=== PATIENT | female | born 1970 | race Caucasian/White ===

== ENCOUNTER 2017-03-09 15:55 | Emergency (ER) | payer BC ==
[2017-03-09 18:45] VITALS: BP 126/72
--- NOTE | 2017-03-09 19:08 | RAD ---
CLINICAL HISTORY: Urinary frequency, bilateral flank pain and lower pelvic pain x1 month. COMPARISON: None TECHNIQUE: Noncontrast CT examination of the abdomen and pelvis from the lung bases through the initial tuberosities. FINDINGS: VISUALIZED LUNG BASES: The visualized lung bases are grossly clear. There is no pleural effusion. ABDOMEN AND PELVIS: Evaluation of the solid organs and vasculature is limited without intravenous contrast. The liver, pancreas and adrenal glands are grossly normal in appearance. The gallbladder is normal. The homogenously attenuating spleen measures 12 cm in greatest dimension. The kidneys are normal in appearance without focal mass, calcification or signs of hydronephrosis. The urinary bladder is mostly decompressed beneath the fundus of the uterus. The small and large bowel are not distended.The patient's normal appendix is identified in the right lower quadrant. There is no gross retroperitoneal or mesenteric lymphadenopathy. Uterus measures 8.1 cm transverse and 10.8 x 5.6 cm in the sagittal plane. The abdominal aorta and iliac arteries are normal in course and diameter. There are no sinister bone lesions. IMPRESSION: 1. There are no renal calculi or signs of hydroureter nephrosis bilaterally. The urinary bladder is mostly decompressed beneath the uterus. 2. The uterus is mildly enlarged measuring 8.3 cm transverse and 10.8 x 5.6 cm in the sagittal plane. The requisition notes a history of uterine ablation which is often done in the setting of uterine fibroids or adenomyosis. If the patient has any clinical gynecologic symptoms superior characterization of the uterus could be made with ultrasound.
--- NOTE | 2017-03-09 19:38 | UC ---
Nette Waters Emily, scribed for Mathieu Montez MD on 03/09/17 at 1702 . Complaint Female HPI - HPI Summary HPI Summary: This patient is a 46 year old F presenting to urgent care with a chief complaint of increased urinary frequency that began 3 weeks ago. The patient rates the pain 4/10 in severity. Symptoms aggravated by nothing. Symptoms alleviated by nothing. Patient reports abd pain, back pain, and dysuria. Pt reports seeing a provider for these symptoms on 03/02/17, and was prescribed antibiotics. Pt reports symptoms lessening 3 days ago, and worsening MAINTENANCE SCHEDULER. - History Of Current Complaint Chief Complaint: UCGU Stated Complaint: UTI COMPLAINT Time Seen by Provider: 03/09/17 16:53 Hx Obtained From: Patient Hx Last Menstrual Period: 02/15/17 Onset/Duration: Sudden Onset, Lasting Weeks, Still Present Timing: Constant Severity Initially: Moderate Severity Currently: Moderate Pain Intensity: 4 Pain Scale Used: 0-10 Numeric Aggravating Factor(s): Nothing Alleviating Factor(s): Nothing Associated Signs And Symptoms: Positive: Back Pain - Allergies/Home Medications Allergies/Adverse Reactions: Allergies Allergy/AdvReac Type Severity Reaction Status Date / Time No Known Allergies Allergy Verified 03/09/17 16:10 PMH/Surg Hx/FS Hx/Imm Hx Previously Healthy: No Endocrine History: Hypothyroidism GI/ History: Other Other GI/ History: Urinary prolapse - Surgical History Surgical History: Yes Surgery Procedure, Year, and Place: - Family History Known Family History: Positive: Unknown - Social History Occupation: Employed Full-time Lives: With Family Alcohol Use: Occasionally Substance Use Type: None Smoking Status (MU): Never Smoked Tobacco - Immunization History Most Recent Tetanus Shot: 10 years ago Review of Systems Gastrointestinal: Abdominal Pain Genitourinary: Dysuria, Frequency Musculoskeletal: Other: - Positive back pain All Other Systems Reviewed And Are Negative: Yes Physical Exam Triage Information Reviewed: Yes Vital Signs: Initial Vital Signs Temp 98.9 F 03/09/17 16:04 Pulse 86 03/09/17 16:04 Resp 18 03/09/17 16:04 BP 149/74 03/09/17 16:04 Pulse Ox 99 03/09/17 16:04 Vital Signs Reviewed: Yes - Additional Comments General: well-appearing, no pain distress Skin: warm, color reflects adequate perfusion, dry Head: normal Eyes: EOMI, SANTHOSH ENT: normal Neck: supple, nontender Respiratory: CTA, breath sounds present Cardiovascular: RRR Abdomen: soft, Mild tenderness to percussion on bilateral flanks. Suprapubic tenderness to palpation. Bowel: present Musculoskeletal: normal, strength/ROM intact Neurological: normal, sensory/motor intact, A&O x3 Psychological: affect/mood appropriate Diagnostics - Radiology CT Abdomen and Pelvis Radiology Interpretation Completed By: Radiologist - CT abdomen and pelvis reveals, per radiologist, 1. There are no renal calculi or signs of hydroureter nephrosis bilaterally. The urinary bladder is mostly decompressed beneath the uterus. 2. The uterus is mildly enlarged measuring 8.3 cm transverse and 10.8 x 5.6 cm in the sagittal plane. The requisition notes a history of uterine ablation which is often done in the setting of uterine fibroids or adenomyosis. If the patient has any clinical gynecologic symptoms superior characterization of the uterus could be made with ultrasound. ED physician has reviewed this radiology report. Complaint Female Dx - Course Course Of Treatment: DISCUSSED RESULTS WITH PATIENT. UTERUS ENLARGED ON CT BUT , NO MECHANICAL OBSTRUCTION SEEN AT THIS TIME. LABS DRAWN PRIMARILY TO EVALUATE SODIUM FOR DIABETES INSIPIDUS AND FOR KIDNEY FUNCTION. DISCUSSED ED EVALUATION NOW; PATIENT PREFERS CT AND LABS THROUGH CLINIC NOW AND F/U WITH PMD OUT PATIENT. SHE WILL GO TO THE ED IF WORSE. - Differential Dx/Diagnosis Provider Diagnoses: ABDOMINAL PAIN, B/L FLANK PAIN, DYSURIA, DILUTE URINE, ENLARGED UTERUS. - Physician Notifications Discussed Patient Care With: Patricia Martines Time Discussed With Above Provider: 17:30 Instructed by Provider To: Other - Consult with Dr. Martines (hospitalist) at 1730. She recommends further workup. Discharge - Discharge Plan Condition: Stable Disposition: HOME Patient Education Materials: Dysuria (ED), Abdominal Pain (ED), Flank Pain (ED) Referrals: Ramila Kelly MD [Primary Care Provider] - Additional Instructions: FOLLOW UP WITH YOUR DOCTOR. GO TO THE EMERGENCY DEPARTMENT FOR ANY WORSENING OF YOUR CONDITION; PAIN, FEVER , YOU FEEL ILL OR QUESTIONS OR CONCERNS. The documentation as recorded by the Nette soto Emily accurately reflects the service I personally performed and the decisions made by me, Mathieu Montez MD.
[2017-03-10 11:07] LABS: ABS Basophils 0 10^3/ul (0-0.2); ABS Eosinophils 0.1 10^3/ul (0-0.6); ABS Lymphocytes 1.3 10^3/ul (1.0-4.8); ABS Monocytes 0.5 10^3/ul (0-0.8); ABS Neutrophils 5.4 10^3/ul (1.5-7.7); ABS Nucleated RBC 0 10^3/ul; Eosinophil % 1.7 % (0-6); Hematocrit 37 % (35-47); Hemoglobin 12.4 g/dl (12.0-16.0); Lymphocyte % 18.1 % (25-47); Mean Corpuscular HGB Conc 34 g/dl (31-36); Mean Corpuscular Hemoglobin 28 pg (27-31); Mean Corpuscular Volume 83 fL (80-97); Mean Platelet Volume 11 um3 (7.4-10.4); Nucleated Red Blood Cells % 0.3; Platelet Count 216 10^3/ul (150-450); Red Blood Count 4.49 10^6/ul (4.0-5.4); Red Cell Distribution Width 14 % (10.5-15); White Blood Count 7.4 10^3/ul (3.5-10.8)
[2017-03-10 11:41] LABS: EGFR Non-African American 79.5 (>60)
--- NOTE | 2017-03-10 22:15 | ED ---
Progress - Progress Note Progress Note: CBC, chemistry reviewed no change to managment Dileepwillian 03/10/2017 Course/Dx - Course Course Of Treatment: DISCUSSED RESULTS WITH PATIENT. UTERUS ENLARGED ON CT BUT , NO MECHANICAL OBSTRUCTION SEEN AT THIS TIME. LABS DRAWN PRIMARILY TO EVALUATE SODIUM FOR DIABETES INSIPIDUS AND FOR KIDNEY FUNCTION. DISCUSSED ED EVALUATION NOW; PATIENT PREFERS CT AND LABS THROUGH CLINIC NOW AND F/U WITH PMD OUT PATIENT. SHE WILL GO TO THE ED IF WORSE. - Provider Notifications Time Discussed With Above Provider: 17:30 Instructed by Provider To: Other - Consult with Dr. Martines (hospitalist) at 1730. She recommends further workup.
== END 2017-03-09 19:36 | disposition home or self-care (01) ==
LOC: UCEAST 15:55
DX: R10.30 Lower abdominal pain, unspecified (principal); M54.9 Dorsalgia, unspecified; R30.0 Dysuria; N85.2 Hypertrophy of uterus; E03.9 Hypothyroidism, unspecified
CPT/HCPCS: 36415; 74176; 80053; 81003; 81025; 84443; 85025; 86140; 87086; 99211; G0463

== ENCOUNTER 2017-11-29 12:42 | Emergency (ER) | payer BC ==
[2017-11-29 12:57] VITALS: BP 109/71
[2017-11-29] MEDS ORDERED: Eye Irrigation Solution 30 ML BOTTLE LEFT EYE ONE (13:15)
[2017-11-29] MEDS ORDERED: Fluorescein Sodium TOPICAL* 1 MG TEST STRIP OPHTHALMIC ONE (13:15)
[2017-11-29] MEDS ORDERED: Tetracaine 0.5% OPTH.SOL 15ML* BTL RIGHT EYE ONE (13:15)
--- NOTE | 2017-11-29 13:15 | UC ---
Eye Complaint HPI - HPI Summary HPI Summary: 47 y/o female presents to the urgent care c/o FB in her RT eye since yesterday. Pt irrigated her eye w/o any relief. Pt reports she was hiking and wind was blowing a lot , then she felt something got into her eye. She has been rubbing her eye a lot. Pain is mild specially in the lateral side of the Rt eye. Pt woke up w/ a lot of irritation. Mild pain 1/10. Pt denies fever, visual disturbance, photophobia, VERDUZCO, SOB, chest pain, abdominal pain, dizziness. Pt is UTD w/ Tetanus vaccine. - History of Current Complaint Chief Complaint: UCEye Stated Complaint: EYE COMPLAINT Time Seen by Provider: 11/29/17 13:14 Hx Obtained From: Patient Hx Last Menstrual Period: 02/15/17 Onset/Duration: Sudden Onset, Lasting Days - 1 day, Still Present, Worse Since - today Timing: Constant Severity Initially: Mild Severity Currently: Mild Pain Intensity: 1 Pain Scale Used: 0-10 Numeric Location of Injury: Conjunctiva Character: Foreign Body Sensation Aggravating Factor(s): Blinking Alleviating Factor(s): Other - eye irrigation Associated Signs And Symptoms: Positive: Drainage (Clear). Negative: Photophobia, Drainage (Purulent), Vision Impairment Bilateral, Fever, Swelling - Risk Factors Penetrating Injury Risk Factor: Negative Globe Rupture Risk Factors: Negative Acute Glaucoma Risk Factors: Negative Optic Artery Occlusion Risk Factors: Negative - Allergies/Home Medications Allergies/Adverse Reactions: Allergies Allergy/AdvReac Type Severity Reaction Status Date / Time No Known Allergies Allergy Verified 11/29/17 12:57 Home Medications: Home Medications Cholecalciferol (Vitamin D3) [Vitamin D3] 1,000 unit PO 11/29/17 [History] PMH/Surg Hx/FS Hx/Imm Hx Previously Healthy: Yes Endocrine History: Hypothyroidism Other Endocrine History: Vitaming D defficiency - Surgical History Surgical History: Yes Surgery Procedure, Year, and Place: - Family History Known Family History: Positive: Unknown - Social History Alcohol Use: Occasionally Substance Use Type: None Smoking Status (MU): Never Smoked Tobacco - Immunization History Most Recent Tetanus Shot: 10 years ago Review of Systems Constitutional: Negative Skin: Negative Eyes: Drainage - clear, Eye Redness - RT eye ENT: Negative Respiratory: Negative Cardiovascular: Negative Gastrointestinal: Negative Genitourinary: Negative Motor: Negative Neurovascular: Negative Musculoskeletal: Negative Neurological: Negative Psychological: Negative Is Patient Immunocompromised?: No All Other Systems Reviewed And Are Negative: Yes Physical Exam - Summary Physical Exam Summary: Vital Signs Reviewed: Yes General: Well appearing, well nourished female in no apparent pain distress Eyes: Positive: Conjunctiva Inflamed - Visual acuity: WNL,Visual gill: full to confrontation.RT eye with lateral side of conjunctiva w/ erythema and clear eye discahrge. No foreign body under eyelids observed with naked eye. mild tenderness to palpation of lateral aspect of RT eye. PERRLA, EOMI intact w/out limitation or complaint of pain. eyelashes clear. mild tearing w/ clear drainage observed. No ciliary flush. No chemosis, No photophobia. Normal fundoscopic exam; no proptosis, exophthalmos, nystagmus. ENT: Positive: Normal ENT inspection, Hearing grossly normal, Pharynx normal, Nasal congestion, Nasal drainage - clear, TMs normal - B/L external ear canal clear , TM's WNL. Negative: Tonsillar swelling, Tonsillar exudate Neck: Positive: Supple, Nontender, No Lymphadenopathy Respiratory: Positive: Chest nontender, Lungs clear, Normal breath sounds, No respiratory distress Cardiovascular: Positive: RRR, No Murmur, Pulses Normal, Brisk Capillary Refill Abdomen Description: Positive: Nontender, No Organomegaly, Soft. Negative: CVA Tenderness (R), CVA Tenderness (L) Bowel Sounds: Positive: Present Musculoskeletal: Positive: Strength Intact, ROM Intact, No Edema Neurological Exam: Normal Psychological Exam: Normal Skin Exam: Normal Triage Information Reviewed: Yes Vital Signs: Initial Vital Signs Temp 98.2 F 11/29/17 12:53 Pulse 77 11/29/17 12:53 Resp 18 11/29/17 12:53 BP 109/71 11/29/17 12:53 Pulse Ox 98 11/29/17 12:53 Eye Complaint Course/Dx - Course Course Of Treatment: 47 y/o female presents to the urgent care c/o FB in her RT eye since yesterday. Pt irrigated her eye w/o any relief. Pt reports she was hiking and wind was blowing a lot , then she felt something got into her eye. She has been rubbing her eye a lot. Pain is mild specially in the lateral side of the Rt eye. Pt woke up w/ a lot of irritation. Mild pain 1/10. Pt denies fever, visual disturbance, photophobia, VERDUZCO, SOB, chest pain, abdominal pain, dizziness. Pt is UTD w/ Tetanus vaccine. Hx obtained. Pt's. RT eye with lateral side of conjunctiva w/ erythema and clear eye discahrge. No foreign body under eyelids observed with naked eye. 2 drops of Tetracaine optha drops placed on Pts RT eye, then irrigated with saline drops to flush any foreign particles, then fluorescein instillation and examination with a UV lamp. Discrete corneal abrasion observed at 9 oclock. No foreign body identified. After procedure Pt felt better. Pt Rx Erythromycin ophthalmic ointment and advised to f/u at [facility] ophthal[facility] [place]. Pt understood and agreed. - Differential Dx/Diagnosis Differential Diagnosis/HQI/PQRI: Conjunctivitis, Corneal Abrasion, Foreign Body , Keratitis, Periorbital Cellulitis Provider Diagnoses: 1 Corneal abrasion of RT eye s/p foreing body Discharge - Sign-Out/Discharge Documenting (check all that apply): Patient Departure - D/C home All imaging exams completed and their final reports reviewed: No Studies - Discharge Plan Condition: Stable Disposition: HOME Prescriptions: Erythromycin OPTH OINT* [Erythromycin 0.5% OPTH OINT*] 1 applic RIGHT EYE TID # 1 ophth.oint Patient Education Materials: Corneal Abrasion (ED), Eye Foreign Body (ED) Referrals: Last Ordoñez MD [Medical Doctor] - 2 Days Ramila Kelly MD [Primary Care Provider] - If Needed Additional Instructions: 1-Please apply ophthalmic ointment as instructed to prevent infection 2-If you do not improve or if symptoms worsen please f/u with sas programmer analyst DR Ordoñez in 2 days for further evaluation and treatment - Billing Disposition and Condition Condition: STABLE Disposition: Home
[2017-11-29] MEDS ORDERED: Tetracaine 0.5% OPTH.SOL 4 ML* 1 DROP BTL ONE (13:28)
[2017-11-29] MEDS ORDERED: Tetracaine 0.5% OPTH.SOL 4 ML* 1 DROP BTL RIGHT EYE ONE (13:29)
== END 2017-11-29 14:15 | disposition home or self-care (01) ==
LOC: UCEAST 12:42
DX: T15.01XA Foreign body in cornea, right eye, initial encounter (principal); E55.9 Vitamin D deficiency, unspecified; X58.XXXA Exposure to other specified factors, initial encounter; Y93.01 Activity, walking, marching and hiking; Y92.9 Unspecified place or not applicable
CPT/HCPCS: 99212; A9270-GY; G0463

== ENCOUNTER 2018-03-18 17:51 | Emergency (ER) | payer BC ==
[2018-03-18 18:15] VITALS: BP 136/89
--- NOTE | 2018-03-18 18:46 | UC ---
Neck Pain HPI - HPI Summary HPI Summary: 47-year-old woman comes in with chief complaint of left jaw and neck pain. One week ago patient noticed some pain and swelling at the angle of the left jaw. Pain gradually spread towards the ear and into the teeth on that side. The pain then crossed the midline to the right side of the jaw. Pain was worse about 2 days ago it's improved slightly since that time. 2 days ago she did feel a chest heaviness but she does not have any of that pain now. She's able to palpate a swelling that she reports is this origin of the pain near the left parotid gland. No fevers or chills she's been able to swallow. Pain is going to the ear. The ear does not hurt and itself. Also some pain in the TMJs. Pain is worse with palpation and movement. She has not tried any ibuprofen. Denies any dental infection. - History of Current Complaint Chief Complaint: UCGeneralIllness Stated Complaint: JAW PAIN Time Seen by Provider: 03/18/18 18:25 Hx Last Menstrual Period: ONSET LAST NIGHT Pain Intensity: 6 - Allergies/Home Medications Allergies/Adverse Reactions: Allergies Allergy/AdvReac Type Severity Reaction Status Date / Time No Known Allergies Allergy Verified 03/18/18 18:16 Home Medications: Home Medications Magnesium 1 tab PO DAILY 03/18/18 [History Confirmed 03/18/18] PMH/Surg Hx/FS Hx/Imm Hx Previously Healthy: Yes - CHRONIC ELEVATED PTH Endocrine History: Hypothyroidism - Surgical History Surgical History: Yes Surgery Procedure, Year, and Place: - Family History Known Family History: Positive: Unknown - Social History Alcohol Use: Occasionally Substance Use Type: None Smoking Status (MU): Never Smoked Tobacco - Immunization History Most Recent Tetanus Shot: 10 years ago Review Of Systems Constitutional: Positive: Negative Skin: Positive: Negative Eyes: Positive: Negative ENT: Positive: Other - SEE HPI Respiratory: Positive: Shortness Of Breath - SEE HPI Cardiovascular: Positive: Negative Gastrointestinal: Positive: Negative Musculoskeletal: Positive: Negative Neurological: Positive: Negative Psychological: Positive: Negative All Other Systems Reviewed And Are Negative: No Physical Exam Appearance: Well-Appearing, No Pain Distress, Well-Nourished Vital Signs: Initial Vital Signs Temp 98.2 F 03/18/18 18:10 Pulse 69 03/18/18 18:10 Resp 16 03/18/18 18:10 BP 136/89 03/18/18 18:10 Pulse Ox 99 03/18/18 18:10 Vital Signs Reviewed: Yes Eye Exam: Normal Eyes: Positive: Conjunctiva Clear ENT: Positive: Pharynx normal, TMs normal, Other - TENDER SWELLING LOWER LEFT PAROTID AREA. Negative: Pharyngeal erythema, Nasal congestion, Nasal drainage, Tonsillar swelling, Tonsillar exudate, Trismus, Muffled voice Dental Exam: Normal Neck: Positive: Supple Respiratory: Positive: Lungs clear, Normal breath sounds, No respiratory distress Cardiovascular: Positive: RRR Musculoskeletal Exam: Normal Musculoskeletal: Positive: Strength Intact, ROM Intact Neurological Exam: Normal Neurological: Positive: Alert, Muscle Tone Normal Psychological Exam: Normal Psychological: Positive: Normal Response To Family, Age Appropriate Behavior Skin Exam: Normal Neck Pain Course/Dx - Course Course Of Treatment: Order Information: CT SOFT TISSUE NECK W/O. Accession Number: [id number]. CPT: 76691. EXAM: CT Neck Without Contrast. EXAM DATE/ TIME: 03/18/2018 6:55 PM. CLINICAL HISTORY: 47 years old, female; Signs and symptoms; Enlarged lymph nodes and mass, lump,. or swelling in neck; Generalized; Additional info: Left jaw/neck pain/swelling. x 1 week, swelling on both sides of neck, pain radiating to mandible. TECHNIQUE: Axial computed tomography images of the neck without contrast. All CT scans at this facility use at least one of these dose optimization. techniques: automated exposure control; mA and/or kV adjustment per patient. size (includes targeted exams where dose is matched to clinical indication); or. iterative reconstruction. Coronal and sagittal reformatted images were created and reviewed. COMPARISON: No relevant prior studies available. FINDINGS: Oropharynx: Normal. No significant tonsillar enlargement. Larynx: Normal. Normal epiglottis. Submandibular/Parotid glands: Normal. Glands are normal in size. Thyroid: Normal. No enlarged or calcified nodules. Lymph nodes: Normal. No lymphadenopathy. Lungs: Normal as visualized. Vasculature: No acute findings. Bones/joints: Mild multilevel cervical spondylopathy. Soft tissues: Normal. No significant soft tissue swelling. IMPRESSION: No CT findings to correlate with patient's symptomatology. Specifically no left. neck masses. To contact [facility] with a general question: Operations Center - [phone]. For direct physician to physician contact: Physician Hotline - [phone]. [facility] [place] (ad Facility ID #[id number]). . <Electronically signed by Tessa Romero MD in OV> 03/18/181930. I discussed the CT results with the patient and her . At this time the plan is to treat with ibuprofen and follow-up with primary care doctor if not completely improved. We discussed the possibility of infection of the parotid gland or teeth. That is not apparent at this time however did write a prescription for amoxicillin to be used if not improving. ALSO discussed warm compresses and sour candies. - Differential Dx/Diagnosis Provider Diagnosis: Jaw pain Discharge - Sign-Out/Discharge Documenting (check all that apply): Patient Departure All imaging exams completed and their final reports reviewed: Yes - Discharge Plan Condition: Stable Disposition: HOME Prescriptions: Amoxicillin PO (*) [Amoxicillin 875 MG (*)] 875 mg PO BID #20 tab Patient Education Materials: Atypical Facial Pain (ED) Referrals: Ramila Kelly MD [Primary Care Provider] - Additional Instructions: FOLLOW UP WITH YOUR DOCTOR IF NOT COMPLETELY IMPROVED. GET RECHECKED FOR ANY WORSENING OF YOUR CONDITION OR QUESTIONS OR CONCERNS. - Billing Disposition and Condition Condition: STABLE Disposition: Home
== END 2018-03-18 19:55 | disposition home or self-care (01) ==
LOC: UCEAST 17:51
DX: R68.84 Jaw pain (principal); M54.2 Cervicalgia
CPT/HCPCS: 70490; 99212; G0463

== ENCOUNTER 2019-06-11 16:06 | Observation (INO) | payer BC, MEDICAID ==
--- NOTE | 2019-06-11 16:21 | ED ---
HPI Chest Pain - HPI Summary HPI Summary: 48 y/o F p/w SOB and CP. On 05/17 patient had negative COVID test. Patient reports 4 weeks of SOB, CP and fatigue. Reports a low grade fever initially, Tmax 38 C. Patient reports persistent CP. No fevers. Patient reports chest pain , dull, consistent, worse at evening. Radiates to upper abdomen. Sometimes has burning pain. Has been measuring home O2 around 88-90 at night. Reports waking up at night gasping for air. No hx DVT/PE. Has been trying mucinex which has helped. Additionally reports productive cough. - History of Current Complaint Time Seen by Provider: 06/11/19 16:14 Hx Obtained From: Patient Hx Last Menstrual Period: 09/29/18 Chest Pain Radiates: Yes Chest Pain Radiates To:: Epigastric Character: Burning, Cough, Productive Aggravating Factor(s): Nothing Alleviating Factor(s): Medication - Mucinex Associated Signs and Symptoms: Positive: Chest Pain, Shortness of Breath, Fever , Cough, Productive Cough, Other: - fatigue - Allergy/Home Medications Allergies/Adverse Reactions: Allergies Allergy/AdvReac Type Severity Reaction Status Date / Time No Known Allergies Allergy Verified 03/18/18 18:16 Home Medications: Home Medications Synthorid 112 MCG TAB* 1 tab PO DAILY 06/30/14 [History Confirmed 03/18/18] Multivitamin [Multivitamins] 1 cap PO DAILY 08/21/15 [History Confirmed 03/18/18 ] Cholecalciferol (Vitamin D3) [Vitamin D3] 1,000 unit PO DAILY 11/29/17 [History Confirmed 03/18/18] Amoxicillin PO (*) [Amoxicillin 875 MG (*)] 875 mg PO BID #20 tab 03/18/18 [Rx] Magnesium 1 tab PO DAILY 03/18/18 [History Confirmed 03/18/18] PMH/Surg Hx/FS Hx/Imm Hx Endocrine/Hematology History: Reports: Hx Thyroid Disease - 112mcg Denies: Hx Diabetes Cardiovascular History: Denies: Hx Hypertension Respiratory History: Denies: Hx Asthma, Hx Chronic Obstructive Pulmonary Disease (COPD) GI History: Denies: Hx Ulcer - Surgical History Surgery Procedure, Year, and Place: Infectious Disease History: Denies: Hx Clostridium Difficile, Hx Hepatitis, Hx Human Immunodeficiency Virus (HIV), Hx of Known/Suspected MRSA, Hx Shingles, Hx Tuberculosis, Hx Known/ Suspected VRE, Hx Known/Suspected VRSA - Family History Known Family History: Positive: Hypertension, Other - CAD, CVA, thrombocytosis - Social History Alcohol Use: Occasionally Substance Use Type: Reports: None Smoking Status (MU): Never Smoked Tobacco Review of Systems Positive: Fever, Fatigue Positive: Chest Pain Positive: Shortness Of Breath, Cough All Other Systems Reviewed And Are Negative: Yes Physical Exam - Summary Physical Exam Summary: Constitutional: Well-developed, Well-nourished, Alert. (-) Distressed Skin: Warm, Dry HENT: Normocephalic; Atraumatic Eyes: Conjunctiva normal Neck: Musculoskeletal ROM normal neck. (-) JVD, (-) Stridor, (-) Nuchal rigidity Cardio: Rhythm regular, rate normal, Heart sounds normal; Intact distal pulses; Radial pulses are 2+ and symmetric. (-) Murmur Pulmonary/Chest wall: Effort normal. (-) Respiratory distress, (-) Wheezes, (-) Rales Abd: Soft, (-) tenderness, (-) Distension, (-) Guarding, (-) Rebound Musculoskeletal: (-) Edema Lymph: (-) Cervical adenopathy Neuro: Alert, Oriented x3 Psych: Mood and affect Normal Triage Information Reviewed: Yes Vital Signs Reviewed: Yes Procedures - Sedation Patient Received Moderate/Deep Sedation with Procedure: No Diagnostics - Laboratory Result Diagrams: 06/11/19 16:50 06/11/19 16:50 Lab Statement: Any lab studies that have been ordered have been reviewed, and results considered in the medical decision making process. - Radiology CXR Radiology Interpretation Completed By: ED Physician Summary of Radiographic Findings: No acute abnormality. This x-ray was reviewed and interpreted by the ED physician pending official read. - EKG 1646 Cardiac Rate: NL EKG Rhythm: Sinus Rhythm Summary of EKG Findings: An EKG at 1646 reveals normal sinus rhythm at 70bpm, nml axis, nml intervals. Mild ST dep II,III, No STEMI. Overall low voltage. No prior. The ED physician has reviewed and interpreted this EKG. Chest Pain Course/Dx - Course Course Of Treatment: 48 y/o F w hx hypthyroidism p/w SOB and CP. - well appearing, SpO2 96%. Lungs CTAB. - EKG low voltage, mild ST dep II,III no prior. Trop 0.09. Given aspirin 324 mg. Concen for ACS vs myocarditis given recent viral like syndrome. D dimer normal, lower suspicion DVT/PE. CXR w/o PNA , PTX or mediastinal widening. - D/w Dr. Restrepo who accepts for admission. BNP ordered. - Patient kept on COVID precautions in ED - Diagnoses Provider Diagnoses: Chest pain - Provider Notifications Discussed Care Of Patient With: Noris Restrepo Time Discussed With Above Provider: 17:38 Instructed by Provider To: Other - At 1738 pt case was discussed with Dr. Restrepo , who agrees to admit the pt. - Critical Care Time Critical Care Statement: Critical care time is provided exclusive of any time spent performing procedures. Discharge ED - Sign-Out/Discharge Documenting (check all that apply): Patient Departure - admit - Discharge Plan Condition: Stable Disposition: ADMITTED TO [facility] Referrals: Ramila Kelly MD [Primary Care Provider] - - Billing Disposition and Condition Condition: STABLE Disposition: Admitted to [facility] - Attestation Statements Document Initiated by Scribe: Yes Documenting Scribe: Bean Epps Provider For Whom Scribe is Documenting (Include Credential): Dave Lewis MD Scribe Attestation: Bean Waters, scribed for Dave Lewis MD on 06/11/19 at 1821. Scribe Documentation Reviewed: Yes Provider Attestation: The documentation as recorded by the Bean soto accurately reflects the service I personally performed and the decisions made by Dave figueroa MD Status of Scribe Document: Viewed
[2019-06-11 17:11] LABS: ABS Basophils 0.1 10^3/ul (0-0.2); ABS Eosinophils 0.1 10^3/ul (0-0.6); ABS Lymphocytes 1.3 10^3/ul (1.0-4.8); ABS Monocytes 0.3 10^3/ul (0-0.8); ABS Neutrophils 4.3 10^3/ul (1.5-7.7); Eosinophil % 1.4 %; Hematocrit 41 % (35-47); Hemoglobin 14.2 g/dL (12.0-16.0); Lymphocyte % 21.8 %; Mean Corpuscular HGB Conc 35 g/dL (31-36); Mean Corpuscular Hemoglobin 30 pg (27-31); Mean Corpuscular Volume 87 fL (80-97); Mean Platelet Volume 8.9 fL (7.4-10.4); Nucleated Red Blood Cells % 0.1; Platelet Count 221 10^3/uL (150-450); Red Blood Count 4.68 10^6 /uL (3.70-4.87); Red Cell Distribution Width 14 % (10-15); White Blood Count 6.1 10^3/uL (3.5-10.8)
[2019-06-11 17:29] LABS: ALT 12 U/L (7-52); Albumin/Globulin Ratio 1.4 (1-3); Alkaline Phosphatase 68 U/L (34-104); BUN/Creatinine Ratio 12.7 (8-20); Blood Urea Nitrogen 10 mg/dL (6-24); CO2 Carbon Dioxide 29 mmol/L (22-32); Calcium 8.8 mg/dL (8.6-10.3); Chloride 104 mmol/L (101-111); EGFR Non-African American 77.7 (>60); Globulin 2.8 g/dL (2-4); Glucose 93 mg/dL (70-100); Sodium 136 mmol/L (135-145); Total Protein 6.8 g/dL (6.4-8.9)
[2019-06-11 17:35] LABS: Troponin I 0.09 ng/mL (<0.03)
[2019-06-11] MEDS ORDERED: Aspirin 81 mg CHEW TAB* 81 MG TAB.CHEW PO ONE (17:41)
[2019-06-11 17:47] LABS: AST 15 U/L (13-39); Anion Gap 3 mmol/L (2-11)
[2019-06-11] MEDS ORDERED: Acetaminophen TAB* 325 MG PO PRN (18:47)
[2019-06-11] MEDS ORDERED: Al Hydrox/Mg Hydrox/Simet LIQ* 30 ML UDC PO PRN (18:47)
--- NOTE | 2019-06-11 20:34 | HP ---
Amended report to enter cosigning physician. CC: Dr. Kelly* HISTORY AND PHYSICAL: DATE OF ADMISSION: 06/11/19 PROVIDER: Mirella Singleton NP PRIMARY CARE PROVIDER: Dr. Kelly. ATTENDING PHYSICIAN WHILE IN THE HOSPITAL: Dr. Brown* (dictated by Mirella Singleton NP). CHIEF COMPLAINT: 1. Chest pain. 2. Shortness of breath. HISTORY OF PRESENT ILLNESS: Ms. Gates is a 48-year-old female with a past medical history significant for hypothyroidism, who presented to the emergency room with complaints of chest pain. The patient reports that she initially started with cough and congestion approximately 4 weeks ago, at which time she was tested for COVID and was negative for COVID. The patient does report that she has self isolated since her COVID testing and has not been out in public or in the contact with public. The patient reports that over the past 4 weeks, she has had progressively worsening shortness of breath associated with chest pain. She notices that this chest pain and shortness of breath is intermittent. She reports that the chest pain and shortness of breath she experiences is after exertion. 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 She describes this as a burning feeling in the center of her chest and with association of unable to catch her breath. 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 The patient denies any fever, chills. She denies any hemoptysis. She does report occasional moist, minimally productive cough. She denies any abdominal pain, nausea, vomiting, or diarrhea. She denies any difficulty with urination, urinary frequency, urgency or pain with urination. She denies any gross hematuria. She denies any focal weakness, sensory loss, visual complaints, dysphagia, or arthralgias. Denies myalgias with rashes, lesions, open sores, psychosis, anxiety. Due to the patient's complaint of exertional chest pain and shortness of breath , Hospital Medicine was asked to see and evaluate her for admission. PAST MEDICAL HISTORY: Significant for hypothyroidism. PAST SURGICAL HISTORY: 1. Tonsillectomy. 2. section x1. HOME MEDICATIONS: Include levothyroxine 125 mcg p.o. daily. ALLERGIES: No known drug allergies. FAMILY HISTORY: Grandfather with an MA in his 50s. Father had a pacemaker placement. No reported history of diabetes or cancer. SOCIAL HISTORY: The patient reports that she was a social smoker approximately 25 years ago. She does not currently smoke at this time. She does report occasional alcohol use. No illicit drug use. She currently lives by herself. Surrogate decision-maker in the event she is unable to make her own decisions is her daughter, Keily. She is a full code. REVIEW OF SYSTEMS: A 14-point review of systems was completed. All pertinent positives as mentioned in the HPI. PHYSICAL EXAMINATION GENERAL: Ms. Gates is a 48-year-old female. She is alert and oriented, resting on the stretcher in the emergency room. She is well-developed, well- nourished middle aged female. VITAL SIGNS: Blood pressure 146/99, heart rate 74, respirations 15, O2 saturation is 96%, temperature was 98.5. HEENT: Head is atraumatic, normocephalic. Eyes: EOMs are intact. Sclerae anicteric and not pale. Oral mucosa is moist. NECK: Supple. LUNGS: Clear to auscultation bilaterally. No wheezes, rales, or rhonchi. CARDIAC: S1, S2. Regular rate and rhythm. No murmurs, rubs, or gallops. ABDOMEN: Soft and nontender. Bowel sounds are present x4. EXTREMITIES: She is able to move all 4 extremities. There is no peripheral edema. Pedal pulses are +2 bilaterally. Radial pulses are +2 bilaterally. NEUROLOGIC: She is awake, alert, oriented x3. Speech is clear. Thought process intact, no gross deficit. SKIN: Intact. DIAGNOSTIC STUDIES/LAB DATA: WBCs are 6.1, RBCs 4.68, hemoglobin 14.2, hematocrit is 41, platelet count is 221. D-dimer was less than 200. Sodium 136 , potassium was 4, chloride 104, carbon dioxide was 29, anion gap was 3, BUN was 10, creatinine 0.79, glucose is 93, and calcium 8.8. ASTs were 15, ALTs were 12, alkaline phosphatase was 68. Troponin was 0.09. BNP was 35. She had a chest x-ray reviewed that showed no acute disease. She had an electrocardiogram which showed sinus rhythm at a rate of 70. No ST or T wave changes notable for ischemia. ASSESSMENT AND PLAN: Ms. Gates is a 48-year-old female with a past medical history significant for hypothyroid, who presented to the emergency room with complaint of exertional chest pain and shortness of breath. She will be admitted under observation for: 1. Chest pain. We will bring her in to rule out acute coronary syndrome. The patient does have a moderately suspicious story as she does report chest pain after exertion with associated shortness of breath and a significant decrease in her normal physical activities. The patient was also found to have a positive troponin of 0.09. HEART score is 4 given her a 12-16% of major cardiac event. She was given aspirin 324 mg in the emergency room. I will continue her on aspirin 81 mg p.o. daily. We will continue to trend her troponins. We will repeat an EKG and get a transthoracic echocardiogram in the AM. Should the patient's troponin continue to trend upward, I will consult Cardiology and place her on full strength Lovenox. At this time, I will hold off on giving the patient a beta- britney as her heart rate is 59 in sinus rhythm in the emergency room. I am also going to add a lipid profile. We will start the statin therapy as needed and I will add on a hemoglobin A1c. The patient does report associated shortness of breath and cough. She was originally tested for COVID 4 weeks ago which was negative. The patient has self isolated. At this time, I did not feel the patient needs to be retested for COVID as she has a chest x-ray that shows no acute disease and symptomatology is not consistent with COVID. It is likely related to cardiac process. The patient has been afebrile as well. 2. Hypothyroid. She will continue on levothyroxine 125 mcg p.o. daily. 3. FEN: She can have a heart healthy, caffeine okay diet. 4. Code status: She is a full code. 5. DVT prophylaxis: I will place her on Lovenox subcu. TIME SPENT: Time spent on this admission was 60 minutes, greater than half that time was spent at the bedside reviewing events leading thus far to her hospitalization, performing physical exam, and reviewing my plan of care. I have discussed this with my attending, Dr. Brown; she is in agreement with my plan. MIRELLA SINGLETON, KAYLIE [id number]/[facility] #: [id number] GISSELL
[2019-06-11 20:36] LABS: Troponin I 0.08 ng/mL (<0.03)
[2019-06-11] MEDS: Enoxaparin(*) 40 MG/0.4 ML SYR SUBCUT SCH (21:05)
[2019-06-12 03:35] LABS: ABS Eosinophils 0.1 10^3/ul (0-0.6); ABS Lymphocytes 1.6 10^3/ul (1.0-4.8); ABS Monocytes 0.3 10^3/ul (0-0.8); ABS Neutrophils 3.2 10^3/ul (1.5-7.7); Hematocrit 40 % (35-47); Hemoglobin 13.7 g/dL (12.0-16.0); Lymphocyte % 30.5 %; Mean Corpuscular HGB Conc 34 g/dL (31-36); Mean Corpuscular Hemoglobin 30 pg (27-31); Mean Corpuscular Volume 88 fL (80-97); Mean Platelet Volume 8.5 fL (7.4-10.4); Nucleated Red Blood Cells % 0.1; Platelet Count 199 10^3/uL (150-450); Red Blood Count 4.59 10^6 /uL (3.70-4.87); Red Cell Distribution Width 14 % (10-15); White Blood Count 5.3 10^3/uL (3.5-10.8)
[2019-06-12 03:51] LABS: Anion Gap 4 mmol/L (2-11); BUN/Creatinine Ratio 11.8 (8-20); Blood Urea Nitrogen 9 mg/dL (6-24); CO2 Carbon Dioxide 28 mmol/L (22-32); Calcium 8.5 mg/dL (8.6-10.3); Chloride 105 mmol/L (101-111); Cholesterol 173 mg/dL; EGFR African American 98.3 (>60); EGFR Non-African American 81.2 (>60); Glucose 90 mg/dL (70-100); HDL Cholesterol 32.4 mg/dL; LDL Cholesterol 115 mg/dL; Potassium 3.9 mmol/L (3.5-5.0); Sodium 137 mmol/L (135-145); Triglycerides 129 mg/dL
[2019-06-12 03:57] LABS: Troponin I 0.09 ng/mL (<0.03)
[2019-06-12] MEDS: Levothyroxine TAB* 125 MCG TAB PO SCH (05:33)
[2019-06-12] MEDS: Aspirin EC TAB* 81 MG TAB.EC PO SCH (09:09)
--- NOTE | 2019-06-12 11:53 | ECHO ---
*[facility]* [place] [address] Fax #: [phone] Transthoracic Echocardiogram Patient: Andra Gates : 1970 Study Date: 06/12/2019 Age: 48 Gender: F HR: 66 bpm Height: 66 in /167.6 cm BSA: 2.12 m^2 Weight: 229.5 lb /104.3 kg BMI: 37.1 kg/m^2 *Wood Craftsman: * Julianne Flores *Referring Physician: * Mirella Singleton *Reading Physician: * Kevon Smith MD Indications: Chest Pain, unspecified. History: Risk factors: Former tobacco use. Family history is significant for coronary artery disease. Conclusions Summary: - Left ventricle: The cavity size is normal. Wall thickness is mildly increased. Systolic function is normal. The estimated ejection fraction is 55-60%. Wall motion is normal; there are no regional wall motion abnormalities. - Normal cardiac chamber sizes. - Functionally benign heart valves. - There is no prior echocardiogram available to compare with at this time. Study data: Transthoracic echocardiogram. Procedure: Transthoracic echocardiography was performed. Image quality was good. Complete 2D, spectral Doppler, and color flow Doppler. Location: Bedside. Patient status: Inpatient. Patient room number: 441-02. Rhythm: Normal sinus rhythm. Findings Left ventricle: The cavity size is normal. Wall thickness is mildly increased. Systolic function is normal. The estimated ejection fraction is 55-60%. Wall motion is normal; there are no regional wall motion abnormalities. Left ventricular diastolic function parameters are normal. Right ventricle: The cavity size is normal. Systolic function is normal. Left atrium: The atrium is normal in size. Right atrium: The atrium is normal in size. Mitral valve: The valve is structurally normal. There is no evidence of stenosis. There is trace regurgitation. Aortic valve: Poorly visualized in terms of leaflet number ascertainment. Transvalvular velocity is within the normal range. There is no evidence of stenosis. There is no significant regurgitation. Tricuspid valve: The valve is structurally normal. There is trace regurgitation. Pulmonic valve: The valve is structurally normal. There is no evidence of stenosis. There is no significant regurgitation. Aorta: The aortic root appears normal. The aortic arch appears normal. Pericardium: There is no significant pericardial effusion. Pulmonary arteries: Normal pulmonary artery systolic pressure estimated at 19 mm Hg. Systemic veins: Inferior vena cava: The vessel is normal in size. There is (>= 50%) respiratory change in the IVC dimension. Limited imaging of respirophasic change. Measurements Left ventricle Value Ref Aortic valve continued Value Ref FADIA, LAX 4.4 cm 3.8 - 5.2 Mean grad, S 4.0 mm Hg ----- ESD, LAX 3.2 cm 2.2 - 3.5 Peak grad, S 7.0 mm Hg ----- FS, LAX 27 % 27 - 45 LVOT/AV, VTI ratio 0.77 ----- PW, ED, LAX (H) 1.2 cm 0.6 - 0.9 ANIRUDH, VTI 2.43 cm^2 ----- E', lat elise, TDI 13.1 cm/sec >=10.0 ANIRUDH, Vmax 2.46 cm^2 ----- E/e', lat elise, 5 TDI Mitral valve Value Ref Peak E 0.68 m/sec ----- LVOT Value Ref Peak A 0.59 m/sec ----- Diam, S 2.00 cm Decel time 298 ms ----- Area 3.1 cm^2 Peak E/A ratio 1.1 ----- Peak aashish, S 1.05 m/sec VTI, S 21.5 cm Pulmonic valve Value Ref Mean grad, S 3 mm Hg Peak v, S 0.68 m/sec ----- SV 68 ml Peak grad, S 2.0 mm Hg ----- Ventricular septum Value Ref Tricuspid valve Value Ref IVS, ED (H) 1.2 cm 0.6 - 0.9 TR peak v 2.01 m/sec <=2.8 Peak RV-RA grad, S 16 mm Hg ----- Right ventricle Value Ref Max TR aashish 2.01 m/sec ----- FADIA, LAX 3.4 cm FADIA minor ax, 3.5 cm 1.9 - 3.5 Aortic root Value Ref A4C mid Root diam 3.0 cm <4.2 Left atrium Value Ref Ascending aorta Value Ref AP dim, ES 3.70 cm 2.70 - AAo AP diam, S 2.7 cm ----- 3.80 ML dim, A4C 3.8 cm Aortic arch Value Ref SI dim, A4C 5.6 cm Arch diam 2.4 cm ----- Vol/bsa, ES, 1-p 19 ml/m^2 11 - 40 A4C Decending aorta Value Ref Moni peak aashish 0.79 m/sec ----- Right atrium Value Ref SI dim, ES 4.7 cm 3.4 - 5.3 Inferior vena cava Value Ref ML dim, ES, A4C 3.7 cm 2.6 - 4.4 Diam 1.9 cm ----- SI dim, ES, A4C 4.7 cm 3.4 - 5.3 Aortic valve Value Ref Peak v, S 1.34 m/sec VTI, S 27.8 cm Legend: (L) and (H) giancarlo values outside specified reference range. Prepared and electronically signed by Kevon Smith MD 06/12/2019 11:52
--- NOTE | 2019-06-12 12:36 | PN ---
Subjective Date of Service: 06/12/19 Interval History: Patient feels comfortable today. Has walked around room and to bathroom today without dyspnea or chest pain. Mentions she has had intermittent palpitations over the past month, but none today. Denies abd pain, n/v/d, fever/chills, peripheral edema. Objective Active Medications: Acetaminophen (Tylenol Tab*) 650 mg PO Q4H PRN PRN Reason: MILD PAIN or TEMP > 100.4 Al Hydrox/Mg Hydrox/Simethicone (Maalox Plus*) 30 ml PO Q6H PRN PRN Reason: INDIGESTION Aspirin (Aspirin Ec Tab*) 81 mg PO DAILY [facility] Last Admin: 06/12/19 09:09 Dose: 81 mg Enoxaparin Sodium (Lovenox(*)) 40 mg SUBCUT BEDTIME [facility] Last Admin: 06/11/19 21:05 Dose: 40 mg Levothyroxine Sodium (Synthroid Tab*) 125 mcg PO DAILY@0600 [facility] Last Admin: 06/12/19 05:33 Dose: 125 mcg Vital Signs - 8 hr 06/12/19 07:15 Temperature 97.7 F Pulse Rate 85 Respiratory 20 Rate Blood Pressure 116/77 (mmHg) O2 Sat by Pulse 98 Oximetry Oxygen Devices in Use Now: None Appearance: Young, white female, sitting upright in bed, appearing comfortable and in NAD Eyes: No Scleral Icterus, - - PERRL Ears/Nose/Mouth/Throat: Mucous Membranes Moist Neck: NL Appearance and Movements; NL JVP, Trachea Midline Respiratory: Symmetrical Chest Expansion and Respiratory Effort, Clear to Auscultation Cardiovascular: NL Sounds; No Murmurs; No JVD, RRR Abdominal: - - abd soft/nontender/nondistended Extremities: No Edema, No Clubbing, Cyanosis Skin: No Rash or Ulcers Neurological: Alert and Oriented x 3 Result Diagrams: 06/12/19 03:22 06/12/19 03:22 Assess/Plan/Problems-Billing Assessment: 48 yo white female with PMHx hypothyroidism presents due to continuing shortness of breath and 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 - Patient Problems (1) Exertional chest pain Current Visit: Yes Status: Acute Code(s): R07.9 - CHEST PAIN, UNSPECIFIED SNOMED Code(s): 37775567 Comment: -exertional chest pain and exertional dyspnea for approx one month -with exertion during farm work, not just while walking -elevated troponin at admission, concern for ACS, stress pending -EKG without ischemic changes -continue aspirin -no sxs since admission, but has not been overly exerting herself (2) Elevated troponin Current Visit: Yes Status: Acute Code(s): R79.89 - OTHER SPECIFIED ABNORMAL FINDINGS OF BLOOD CHEMISTRY SNOMED Code(s): 061562022 Comment: -peaked to 0.10, has since downtrended -no overt ischemic changes to EKG -concerned about prior PR within the last month based on history -TTE without abnormal wall motion -pending nuclear stress test (3) Hypothyroidism Current Visit: Yes Status: Acute Code(s): E03.9 - HYPOTHYROIDISM, UNSPECIFIED SNOMED Code(s): 53192891 Comment: -continue synthroid (4) Full code status Current Visit: Yes Status: Acute Code(s): Z78.9 - OTHER SPECIFIED HEALTH STATUS SNOMED Code(s): 862754783 (5) DVT prophylaxis Current Visit: Yes Status: Acute Code(s): Z29.9 - ENCOUNTER FOR PROPHYLACTIC MEASURES, UNSPECIFIED SNOMED Code(s): 939958675 Comment: -lovenox Status and Disposition: awaiting nuclear stress test
[2019-06-12] MEDS: Enoxaparin(*) 40 MG/0.4 ML SYR SUBCUT SCH (20:23)
[2019-06-13] MEDS: Levothyroxine TAB* 125 MCG TAB PO SCH (05:40)
[2019-06-13] MEDS: Aspirin EC TAB* 81 MG TAB.EC PO SCH (08:01)
[2019-06-13] MEDS ORDERED: Metoprolol Succinate XL TAB* 25 MG PO ONE (13:54)
[2019-06-13 15:08] LABS: C Reactive Protein < 1.00 mg/L (<8.01)
[2019-06-13 15:23] VITALS: BP 136/74
[2019-06-13 19:02] LABS: Erythrocyte Sed Rate 0 mm/Hr (0-19)
--- NOTE | 2019-06-14 02:55 | DS ---
CC: Dr. Kelly* DISCHARGE SUMMARY: DATE OF ADMISSION: 06/11/19 DATE OF DISCHARGE: 06/13/19 PROVIDER: ERASTO Jin ATTENDING PHYSICIAN WHILE IN THE HOSPITAL: Dr. Anayeli Vizcarra* (dictated by ERASTO Jin). PRIMARY CARE PROVIDER: Dr. Kelly. PRIMARY DIAGNOSIS: Chest pain and shortness of breath, acute coronary syndrome ruled out with suspicion for myocarditis. SECONDARY DIAGNOSIS: Hypothyroidism. PERTINENT STUDIES WHILE IN THE HOSPITAL: 1. Nuclear medicine cardiac stress test on 06/13/19, impression: No evidence for stress induced myocardial ischemia or infarct. 2. Normal left ventricular wall motion, ejection fraction. Assessment: Low risk based on nuclear portion. 3. Cardiac portion of stress test was low risk as well. 4. Transesophageal echocardiogram on 06/12/19, impression: Pertinent findings of EF of 55% to 60% with normal wall motion and no wall motion abnormalities, functionally benign heart valves. PERTINENT LABORATORY VALUES: Troponin peak of 0.10, later down to 0.09. 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 Of note, it is significant that her goats are over 200 pounds and this is a significant amount of exertion. She has not been having these symptoms when just ambulating around her home. Her symptomatology started approximately 4 weeks ago when she had chills, cough, congestion and also the shortness of breath and was tested for COVID at that time and has been self- isolating for the last 4 weeks. Of note, her COVID test was negative and these other symptoms have improved, but dyspnea with exertion has not. She does tell me additionally that she has had intermittent palpitations throughout the last month. During her hospitalization, she did not have any of these symptoms including while ambulating around the hospital. She did not have palpitations during this hospitalization either. She is on telemetry and there were no arrhythmias noted. Her troponin was initially elevated at admission and there were no ischemic changes on her EKG on multiple readings. Her troponin peaked to 0.10 and later down trended. She had a transthoracic echocardiogram which was without any concerning findings and she had a low risk nuclear stress test. Given the patient's history and her elevated troponin, I did have concern that she may have had a cardiac event 4 weeks ago, but at the time of the presentation this does not seem to represent acute coronary syndrome. I additionally have suspicion for possible myocarditis. I added on a CRP and sed rate which are negative, which make myocarditis seems less likely. I did discuss this case very briefly with Dr. Carpenter, who agrees it is reasonable for this patient to have further evaluation outpatient and he recommended treating her medically with a beta-britney and daily aspirin. The patient is agreeable with this plan. She was not hypoxic during her hospitalization either and her chest x-ray was without abnormalities at admission as well. Dr. Carpenter did not feel that cardiac catheterization was needed for this patient at this time. At admission, the patient's HEART score was 4. PHYSICAL EXAM ON DAY OF DISCHARGE: General: Young white female, sitting in bed , appearing comfortable, in no acute distress. Eyes: No scleral icterus. Cardiac: Regular rate and rhythm without murmurs, rubs or gallops. Lungs: Clear to auscultation bilaterally. Abdomen: Soft and nondistended. Extremities: No clubbing, cyanosis or edema. Neuro: The patient is alert and oriented x3. DISCHARGE PLAN: The patient is to follow up with Cardiology within a month. I additionally recommend that she follows up with her primary care provider within a week to 2 weeks. We had a through discussion about my concern if the symptoms are ongoing. She understands that if she has unresolved dyspnea or chest pain that she should take a nitroglycerin and return to emergency department. She is advised to additionally return to emergency department for loss of consciousness, fever or chills or other concerning symptoms. This patient may benefit from Holter monitor outpatient perhaps a stress echo, but further workup will be determined by the cardiology team. DISCHARGE MEDICATIONS: 1. Aspirin 81 mg p.o. daily. 2. Metoprolol succinate 25 mg p.o. daily. 3. Nitroglycerin 0.4 mg sublingual q.5 minutes p.r.n. angina. Continued Home Medications: 1. Vitamin D3 1000 units p.o. daily. 2. Magnesium 1 tab p.o. daily. 3. Multivitamin 1 tab p.o. daily. 4. Levothyroxine 125 mcg p.o. daily. CONDITION ON DISCHARGE: Stable. DISPOSITION: Home. TIME SPENT: Approximately 50 minutes was spent on this discharge, approximately half this time was spent at bedside evaluating the patient, discussing the plan of care. ERASTO JIN [id number]/[facility] #: [id number]
== END 2019-06-13 13:40 | disposition home or self-care (01) ==
LOC: ED 16:06 → MEDTELE 18:47
PROVIDERS: ADMIT Internal Medicine; ATTEND Hospitalist
DX: R07.9 Chest pain, unspecified (principal); R06.02 Shortness of breath; E03.9 Hypothyroidism, unspecified; R05 Cough; Z79.82 Long term (current) use of aspirin; Z79.899 Other long term (current) drug therapy; R53.83 Other fatigue; Z79.890 Hormone replacement therapy; R50.9 Fever, unspecified; R79.89 Other specified abnormal findings of blood chemistry; R94.31 Abnormal electrocardiogram [ECG] [EKG]
CPT/HCPCS: 36415; 71045; 78452; 80048; 80053; 80061; 83036; 83880; 84484; 85025; 85379; 85652; 86140; 93005; 93017; 93306; 96372; 99284; A9270-GY; A9502; G0378; J1650